=== PATIENT | female | born 1965 | race Caucasian/White ===

== ENCOUNTER 2025-06-17 02:49 | Inpatient (IN) | payer MEDICAID, OTHER ==
[~2025-06-17] VITALS: Ht 176.5 cm; Wt 85.5 kg
--- NOTE | 2025-06-17 03:38 | ED.PDOC ---
History of Present Illness HPI Comments 60 y/o obese F is BIBA as a transfer from [facility] for GI bleed. Patient endorses on being found with a GI bleed after being seen for an isolated, 25x minute diarrhea episode with black tarry stools, yesterday, following recent colonoscopy and EGD 2x days ago. Patient also complains of rig ht sided abdominal pain since aforementioned procedure alongside feeling lightheaded. Denial of any further acute symptoms. Chief Complaint: GI Bleed Time Seen by MD: 03:15 Reviewed Notes: Nurses Notes, Equipment Tester Notes, Medications, Allergies Allergies: Coded Allergies: Diphenhydramine (Verified Allergy, Unknown, 06/17/25) Information Source: Patient, Transfer Record, Emergency Med Personnel Mode of Arrival: EMS Severity: Moderate Timing: Days Duration: Since onset Prehospital treatment: 12 Lead EKG, Accucheck, Bill Cutter, Other (see transfer record ) Past Medical History Surgical History (Other): EGD, colonoscopy Family History Family History: Unknown Social History Smoker: Non-Smoker Alcohol: Denies ETOH Use Drugs: Denies Drug Use All Other Systems: Reviewed and Negative (As per HPI) Physical Exam General Appearance: Mild Distress, Obese HEENT: Normal ENT Inspection, Pharynx Normal, TMs Normal Neck: Full Range of Motion, Non-Tender, Normal, Normal Inspection Respiratory: Chest Non-Tender, Lungs Clear, No Accessory Muscle Use, No Respiratory Distress, Normal Breath Sounds Cardiovascular: No Edema, No JVD, No Murmur, No Gallop, Normal Peripheral Pulses, Regular Rate/Rhythm Breast Exam: Deferred Gastrointestinal: No Organomegaly, No Pulsatile Mass, Normal Bowel Sounds, RLQ (tenderness ), Soft, Tenderness (RLQ) Genitalia: Deferred Pelvic: Deferred Rectal: Deferred Extremities: No calf tenderness, Normal capillary refill, Normal inspection, Normal range of motion, Non-tender, No pedal edema Musculoskeletal : Apperance: Normal Neurologic: Alert, manager intranet II-XII nml as Tested, No Motor Deficits, Normal Affect, Normal Mood, No Sensory Deficits Cerebellar Function: Normal Reflexes: Normal Skin: Dry, Normal Color, Warm Lymphatic: No Adenopathy Was a procedure done? Was a procedure done?: No Differential Dx Considerations may include: GI bleed X-Ray, Labs, Meds, VS Vital Signs Date Time Temp Pulse Resp B/P (MAP) Pulse Ox O2 Delivery O2 Flow Rate FiO2 06/17/25 04:05 Room Air* 0 21 06/17/25 03:36 84 16 160/75 (103) 99 06/17/25 02:55 97.9 72 18 140/79 72 97.9 Lab Test 06/17/25 03:26 Range/Units White Blood Count 5.1 4.4-10.8 10^3/uL Red Blood Count 3.89 L 4.0-5.20 10^6/uL Hemoglobin 11.6 L 12.2-16.2 g/dL Hematocrit 34.0 L 36.0-46.0 % Mean Corpuscular Volume 87.4 80.0-100.0 fL Mean Corpuscular Hemoglobin 29.8 28.0-32.0 pg Mean Corpuscular Hemoglobin Concent 34.0 32.0-36.0 g/dL Red Cell Distribution Width 14.3 11.8-14.3 % Platelet Count 280 140-450 10^3/uL Mean Platelet Volume 8.0 6.9-10.8 fL Neutrophils (%) (Auto) 56.5 37.0-80.0 % Lymphocytes (%) (Auto) 33.0 10.0-50.0 % Monocytes (%) (Auto) 7.3 0.0-12.0 % Eosinophils (%) (Auto) 1.8 0.0-7.0 % Basophils (%) (Auto) 1.4 0.0-2.0 % Neutrophils # (Auto) 2.9 1.6-8.6 10 ^3/uL Lymphocytes # (Auto) 1.7 0.4-5.4 10 ^3/uL Monocytes # (Auto) 0.4 0-1.3 10 ^3/uL Eosinophils # (Auto) 0.1 0-0.8 10 ^3/uL Basophils # (Auto) 0.1 0-0.2 10 ^3/uL Nucleated Red Blood Cells 0.1 % Prothrombin Time 10.9 9.3-11.8 sec Prothrombin Time INR 1.03 0.9-1.15 Activated Partial Thromboplast Time 25.6 24.5-34.5 SEC Sodium Level 145 136-145 mmol/L Potassium Level 3.8 3.5-5.1 mmol/L Chloride Level 110 H 98-107 mmol/L Carbon Dioxide Level 25 20-31 mmol/L Anion Gap 10 5-15 Blood Urea Nitrogen 32 H 9-23 mg/dL Creatinine 1.22 H 0.550-1.02 mg/dL Glomerular Filtration Rate Calc 51 >90 mL/min BUN/Creatinine Ratio 26.2 H 10.0-20.0 Serum Glucose 103 74-106 mg/dL Calcium Level 9.2 8.7-10.4 mg/dL Total Bilirubin 0.4 0.2-1.0 mg/dL Aspartate Amino Transferase (AST) 24 13-40 U/L Alanine Aminotransferase (ALT) 24 7-40 U/L Alkaline Phosphatase 72 46-116 U/L Total Protein 6.9 5.7-8.2 g/dL Albumin 4.5 3.2-4.8 g/dL Current Medications Medications (Trade) Dose Ordered Sig/Ross Route Start Time Stop Time Status Last Admin Pantoprazole Sodium 50 ml @ 10 mls/hr Q5H ONCE IV 06/17/25 03:30 06/17/25 08:29 06/17/25 03:57 Acetaminophen/ Hydrocodone Bitart ([place] 5/325MG Tab) 1 tab ONCE ONCE PO 06/17/25 04:15 06/17/25 04:16 DC 06/17/25 04:25 Ondansetron HCl (Zofran) 4 mg ONCE ONCE IV 06/17/25 04:30 06/17/25 04:31 DC 06/17/25 04:25 Time of 1ST Reevaluation: 03:45 Reevaluation 1ST: Unchanged Patient Education/Counseling: Diagnosis, Treatment, Other (need for admission ) Family Education/Counseling: No Family Present SEPSIS Sepsis Screen Date sepsis recognized/suspect: Jun 17, 2025 Time Sepsis recognized/suspect: 300 Recent Procedure: No On Antibiotic Therapy: No Respiratory Rate >20: No Heart Rate >90: No Temp<36 C (96.8 F) or >38.3 C: No SBP <90 or MAP <65 mmHG: No New Acute Mental Status Change: No Is the patient on CPAP, BIPAP,: No Physician Orders Chest Portable (06/17/25 03:17) Electrocardigram (06/17/25 03:17) Pantoprazole 40mg/50ml Ns Ae (Protonix) (06/17/25 03:30) Vital Signs Date Time Temp Pulse Resp B/P (MAP) Pulse Ox O2 Delivery O2 Flow Rate FiO2 06/17/25 04:05 Room Air* 0 21 06/17/25 03:36 84 16 160/75 (103) 99 06/17/25 02:55 97.9 72 18 140/79 72 97.9 Laboratory Tests Test 06/17/25 03:26 White Blood Count 5.1 10^3/uL (4.4-10.8) Medications Medications Dose Ordered Sig/Ross Route Start Time Stop Time Status Last Admin Dose Admin Acetaminophen/ Hydrocodone Bitart 1 tab ONCE ONCE PO 06/17/25 04:15 06/17/25 04:16 DC 06/17/25 04:25 Ondansetron HCl 4 mg ONCE ONCE IV 06/17/25 04:30 06/17/25 04:31 DC 06/17/25 04:25 Pantoprazole Sodium 50 ml @ 10 mls/hr Q5H ONCE IV 06/17/25 03:30 06/17/25 08:29 06/17/25 03:57 Departure 1 Departure Time of Disposition: 05:18 Impression: Primary Impression: GI bleed Disposition: ADMITTED INPATIENT Admit to: Med Surg Condition: Guarded Discharged With: Self Comments 60-year-old female with GI bleeding. Patient recently had an endoscopy. The b leeding is melanotic. I suspect upper GI bleed. I ordered a Protonix drip. Patient will need admission for supportive care and further workup and GI consultation Critical Care Note Critical Care Time?: Yes (35 min-critical care time only) Critical care comment: Total critical care time: Approximately 36 minutes Due to a high probability of clinically significant, life threatening deterioration, the patient required my highest level of preparedness to intervene emergently and I personally spent this critical care time directly and personally managing the patient. This critical care time included obtaining a history; examining the patient; pulse oximetry; ordering and review of studies; arranging urgent treatment with development of a management plan; evaluation of patient's response to treatment; frequent reassessment; and, discussions with other providers. This critical care time was performed to assess and manage the high probability of imminent, life-threatening deterioration that could result in multi-organ failure. It was exclusive of separately billable procedures and treating other patients. Stability Stability form required: No Heart Score Heart Score: Heart Score Response (Comments) Value History N/A 0 EKG N/A 0 Age N/A 0 Risk Factors N/A 0 Troponin N/A 0 Total 0 I personally scribed for JOAN COATS MD ([email or web address]) on 06/17/25 at 03:37. Electronically submitted by Sylvester Gabriel ([email or web address]). I personally scribed for JOAN COATS MD ([email or web address]) on 06/17/25 at 04:00. Electronically submitted by Sylvester Gabriel [email or web address]). JOAN COATS MD Jun 17, 2025 03:37
[2025-06-17 03:39] LABS: Hematocrit 34.0 % (36.0-46.0); Hemoglobin 11.6 g/dL (12.2-16.2); Mean Corpuscular Hemoglobin 29.8 pg (28.0-32.0); Mean Corpuscular Volume 87.4 fL (80.0-100.0); Nucleated Red Blood Cells % 0.1 %
[2025-06-17 03:56] LABS: INR 1.03 (0.9-1.15); Partial Thromboplastin Time 25.6 SEC (24.5-34.5); Prothrombin Time 10.9 sec (9.3-11.8)
[2025-06-17 03:57] LABS: Alanine Aminotransferase 24 U/L (7-40); Alkaline Phosphatase 72 U/L (46-116); Anion Gap 10 (5-15); BUN/Creatinine Ratio 26.2 (10.0-20.0); Calcium 9.2 mg/dL (8.7-10.4); Carbon Dioxide 25 mmol/L (20-31); Glucose 103 mg/dL (74-106); Potassium 3.8 mmol/L (3.5-5.1); Sodium 145 mmol/L (136-145); Total Protein 6.9 g/dL (5.7-8.2)
[2025-06-17] MEDS: PANTOPRAZOLE 40mg/50ML NS AE 50 ML IV ONE (03:57)
[2025-06-17 03:58] LABS: Albumin 4.5 g/dL (3.2-4.8); Bilirubin, Total 0.4 mg/dL (0.2-1.0)
[2025-06-17 04:04] LABS: Blood Urea Nitrogen 32 mg/dL (9-23); Chloride 110 mmol/L (98-107)
[2025-06-17] MEDS: ONDANSETRON HCL 4 MG/2 ML VIAL IV ONE (04:25)
[2025-06-17] MEDS: HYDROcodone-ACET 5/325MG TAB PO ONE (04:25)
--- NOTE | 2025-06-17 04:41 | DVH ---
CHEST RADIOGRAPH Indication: SOB Technique: Single frontal view of the chest was obtained COMPARISON: CHEST 1V PORT on DOS: 06/16/25, CHEST 1V PORT on DOS: 02/08/25, CHEST TWO VIEWS on DOS: 01/18 10/13 FINDINGS: Lines and Tubes: None Lungs: Clear Pleura: No effusion. No pneumothorax. Cardiomediastinal contours: Unremarkable Bones: Unremarkable IMPRESSION: 1. No acute disease.
[2025-06-17] MEDS: PANTOPRAZOLE 40mg/50ML NS AE 50 ML IV SCH (05:45)
[2025-06-17] MEDS: SODIUM CHLORIDE 0.9% 1,000 ML IV ONE (05:45)
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
--- NOTE | 2025-06-17 06:29 | ECG ---
[facility] Test Date: 2025-06-17 Test Time: 04:26:19 Pat Name: JEAN PAUL JORGE Department: [facility] ED Patient ID: [facility]-[id number] Room: [address] [place] [address] Gender: F Leadership Program Internship: DEVIN : 1965 Requested By: JOAN COATS Order Number: [id number] Reading MD: Lon Sosa Measurements Intervals [place] Rate: 72 P: 69 VT: 188 QRS: 12 QRSD: 108 T: 53 QT: 505 QTc: 553 Interpretive Statements Sinus rhythm Low voltage, precordial leads Abnormal R-wave progression, early transition Prolonged QT interval Electronically Signed On 06-20-2025 22:04:45 PDT by Lon Sosa Please click the below link to view image of tracing.
[2025-06-17 06:42] LABS: HDL Cholesterol 45.0 mg/dL (40-59); Magnesium 2.1 mg/dL (1.6-2.6)
[2025-06-17 06:43] LABS: Cholesterol 187.0 mg/dL (< 200); Triglycerides 232.0 mg/dL (< 150)
[2025-06-17] MEDS: SODIUM CHLORIDE 0.9% 1,000 ML IV SCH (06:51)
[2025-06-17 07:00] LABS: Lipase 57.0 U/L (12-53)
[2025-06-17 07:48] LABS: Benzodiazephine Screen, Urine Neg (NEGATIVE)
[2025-06-17 07:49] LABS: Amphetamine Screen, Urine Neg (NEGATIVE); Barbiturate Scree,Urine Neg (NEGATIVE); Cannabinoid Screen, Urine Neg (NEGATIVE); Cocaine Screen, Urine Neg (NEGATIVE); Opiate Scree,Urine Neg (NEGATIVE); Phencyclidine Screen, Urine Neg (NEGATIVE); Urine Protein, UAD Negative (Negative)
--- NOTE | 2025-06-17 08:50 | DVH ---
Carotid Duplex Date: 06/17/2025 08:04 AM Clinical History: Multiple history of TIA Comparison: CTA CAROTID/ NECK on DOS: 04/06/25 Technique: Duplex Doppler evaluation of the extracranial carotid and vertebral arteries including col or Doppler and spectral/pulsed waveform analysis was performed. Findings: Velocities and ratios within normal limits IMPRESSION: No hemodynamically significant stenosis noted in the right carotid system. No hemodynamically significant stenosis noted in the left carotid system. Reference: Radiology 2003; 229:340-346
[2025-06-17 09:08] LABS: Hematocrit 32.6 % (36.0-46.0); Hemoglobin 11.1 g/dL (12.2-16.2); Mean Corpuscular Hemoglobin 29.4 pg (28.0-32.0); Mean Corpuscular Volume 86.1 fL (80.0-100.0); Nucleated Red Blood Cells % 0.3 %
[2025-06-17 09:19] LABS: Alanine Aminotransferase 22 U/L (7-40); Albumin 4.1 g/dL (3.2-4.8); Alkaline Phosphatase 65 U/L (46-116); Anion Gap 8 (5-15); BUN/Creatinine Ratio 20.8 (10.0-20.0); Carbon Dioxide 23 mmol/L (20-31); Glucose 100 mg/dL (74-106); Magnesium 1.9 mg/dL (1.6-2.6); Potassium 4.2 mmol/L (3.5-5.1); Sodium 143 mmol/L (136-145); Total Protein 6.5 g/dL (5.7-8.2)
[2025-06-17 09:20] VITALS: PULSE 74; RESP 12; O2SAT 100
[2025-06-17 09:20] LABS: Bilirubin, Total 0.3 mg/dL (0.2-1.0)
[2025-06-17 09:22] LABS: Blood Urea Nitrogen 26 mg/dL (9-23); Calcium 8.5 mg/dL (8.7-10.4); Chloride 112 mmol/L (98-107)
[2025-06-17] MEDS: IOHEXOL 350 MG/ML 100ML IJ ONE (10:09)
[2025-06-17] MEDS: SODIUM CHLORIDE 0.9% 2,000 ML IV ONE (10:12)
[2025-06-17 10:26] LABS: Ferritin 43.3 ng/mL (10-291)
[2025-06-17 11:23] LABS: Iron 62.0 ug/dL (50-170)
[2025-06-17 11:26] LABS: Total Iron Binding Capacity 315.0 ug/dL (250-425)
--- NOTE | 2025-06-17 12:14 | DVHSR ---
APPROVED REPORT EXAM: Two-dimensional and M-mode echocardiogram with Doppler and color Doppler. Blood Pressure: 124/68 mmHg INDICATION SOB RISK FACTORS Height: 64, Weight: 190 DIMENSIONS LVDd (3.8-5.7cm)LA (2D)3.4 (1.9-4.0cm)Aortic Root3.3 (2.0-3.7cm) LVDs (2.5-4.0cm)LA (MM) (1.9-4.0cm)Aortic Cusp Exc1.6 (1.5-2.0cm) EF (%) 76.0 (55-70%)Rt. Atrium3.7 (1.9-4.0cm)Asc. Aorta cm Mitral Valve MitralMitral Stenosis E wave0.82m/sMV Mean GR.mmHg A wave1.15m/sMV Peak GR.101mmHg E/A ratio0.72D MVAcm2 DECEL [id number] 1/2 [id number] IVRTmsDop MVA2.29cm2 Aortic Valve Aortic ValveAortic Stenosis V11.64m/Sujey Mean GR.10mmHg V22.20m/Sujey Peak GR.19mmHg LVOT Diameter1.8 (1.8-2.4cm)Doppler AVA1.90cm2 AI P 1/2 Zujx484.04ms Tricuspid Valve TR Velocity2.21m/s [id number] Conclusion lvef 65% mild mitral regurg normal rv function
[2025-06-17 13:00] VITALS: PULSE 74; RESP 20; O2SAT 99
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
--- NOTE | 2025-06-17 13:35 | DVH ---
Indication: RULE OUT INTRA-ABDOMINAL BLEEDING Technique: CT axial images of the abdomen and pelvis are obtained with intravenous contrast. Coronal and sagittal reformats were obtained. Radiation Dose Information: CTDI volume is 9.76 mGy. Dose-length product is 562 mGy*cm Comparison: CTA AAA on DOS: 04/06/25 FINDINGS: Lung bases demonstrate no pleural effusion. 3 mm left lower lobe solid nodule. Adrenal glands, spleen, pancreas unremarkable. Hydropic/Distended gallbladder. No enhancing hepatic lesion. Right renal cortical scarring. Kidneys demonstrate no hydronephrosis. Stomach is partially distended. Small bowel loops are normal in caliber. Moderate volume stool in the colon. No secondary signs for appendicitis. The abdominal aorta is normal in caliber without evidence for aneurysmal dilatation/ dissection. The celiac artery demonstrates no high-grade stenosis. SMA demonstrates no high-grade stenosis. Renal ar teries demonstrate no high-grade stenosis. SHAAN demonstrates no high-grade stenosis. Bladder is distended. No free pelvic fluid. No inguinal lymphadenopathy. Severe degenerate changes left hip. Moderate degenerate changes right hip. Moderate thoracolumbar de generative disc disease. IMPRESSION: No evidence for abdominal aortic aneurysmal dilatation/dissection. Hydropic/Distended gallbladder. Right renal parenchymal cortical scarring. 3 mm left lower lobe pulmonary nodule. Recommend follow-up per fleischner society criteria guideline s Other findings as described.
[2025-06-17 13:51] LABS: Hematocrit 31.4 % (36.0-46.0); Hemoglobin 10.4 g/dL (12.2-16.2); Mean Corpuscular Hemoglobin 30.0 pg (28.0-32.0); Mean Corpuscular Volume 90.4 fL (80.0-100.0); Nucleated Red Blood Cells % 0.1 %
[2025-06-17 13:56] LABS: Potassium 4.2 mmol/L (3.5-5.1)
[2025-06-17 13:57] LABS: Anion Gap 10 (5-15); Carbon Dioxide 22 mmol/L (20-31); Chloride 113 mmol/L (98-107); Sodium 145 mmol/L (136-145)
[2025-06-17 13:59] LABS: Calcium 8.2 mg/dL (8.7-10.4)
[2025-06-17] MEDS: MORPHINE SULFATE INJ 2 MG/ml SYRG IV PRN (14:01)
[2025-06-17 14:02] LABS: BUN/Creatinine Ratio 21.2 (10.0-20.0); Blood Urea Nitrogen 24 mg/dL (9-23); Glucose 103 mg/dL (74-106)
--- NOTE | 2025-06-17 16:30 | DVHINCON2 ---
GI Consult Consult Note Date of Consultation: 06/17/25 Chief Complaint: melena Referring Physician: Dr Almendarez H&P: 60 y.o. woman who had EGD with biopsy and colonoscopy done on who presents with a few episodes of melena. No bright blood in stool. She c/o some right side abdominal pain. No nausea and vomiting. Past Medical History: Dyslipidemia, asthma, fibromyalgia, questionable IBS, diverticulosis, gastritis, GERD, two episodes of TIA (03/2025), endometriosis status post initial uterine ablation and posterior hysterectomy, left hip osteoarthritis planning on completing surgery, depression, PTSD Past Surgical History:C7 fusion, uterine ablation, hysterectomy Social History: NO smoking, drinking ETOH and use of illegal drugs. Family History: no family h/o GI illness Review of Systems: Constitutional: no fever, chill, weight loss HEENT: no eye pain, no hearing loss, no oral lesion, no scleral icterus Heart: no chest pain, no chest pressure Lung: no cough, no dyspnea with exertion Abdomen: see HPI : no pain with urination, normal appearing urine Musculoskeletal: no joint pain, no muscle pain Neurological: no seizure, no loss of sensation, no weakness in extremities Pysch: no depression, no anxiety Derm: no rash, no jaundice Physical exam: General: NAD, AAOX3 HEENT: PERRL, no scleral icterus, normal hearing, gums without lesions or bleeding, oropharynx clear without erythema or exudate. Neck: Supple without enlargement of the thyroid, or lymphadenopathy. Chest: Normal size and shape, no tenderness, lung love clear to auscultation and percussion, nonlabored breathing. Heart: RRR, no murmur Abdomen: non-distended, no tenderness to palpation, +BS, no hepatosplenomegaly Extremities: no edema, no cyanosis Neurological: CN II-XII intact, sensation intact in all extremities, 5+ strength in all extremities, no asterixis Skin: No rashes, No jaundice Labs: Laboratory Results Test 06/17/25 13:36 06/17/25 12:12 06/17/25 08:49 06/17/25 06:51 White Blood Count 4.2 10^3/uL (4.4-10.8) Red Blood Count 3.48 10^6/uL (4.0-5.20) Hemoglobin 10.4 g/dL (12.2-16.2) Hematocrit 31.4 % (36.0-46.0) Mean Corpuscular Volume 90.4 fL (80.0-100.0) Mean Corpuscular Hemoglobin 30.0 pg (28.0-32.0) Mean Corpuscular Hemoglobin Concent 33.2 g/dL (32.0-36.0) Red Cell Distribution Width 14.3 % (11.8-14.3) Platelet Count 229 10^3/uL (140-450) Mean Platelet Volume 7.8 fL (6.9-10.8) Neutrophils (%) (Auto) 68.9 % (37.0-80.0) Lymphocytes (%) (Auto) 21.7 % (10.0-50.0) Monocytes (%) (Auto) 6.8 % (0.0-12.0) Eosinophils (%) (Auto) 1.2 % (0.0-7.0) Basophils (%) (Auto) 1.4 % (0.0-2.0) Neutrophils # (Auto) 2.9 10 ^3/uL (1.6-8.6) Lymphocytes # (Auto) 0.9 10 ^3/uL (0.4-5.4) Monocytes # (Auto) 0.3 10 ^3/uL (0-1.3) Eosinophils # (Auto) 0 10 ^3/uL (0-0.8) Basophils # (Auto) 0.1 10 ^3/uL (0-0.2) Nucleated Red Blood Cells 0.1 % Sodium Level 145 mmol/L (136-145) Potassium Level 4.2 mmol/L (3.5-5.1) Chloride Level 113 mmol/L (98-107) Carbon Dioxide Level 22 mmol/L (20-31) Anion Gap 10 (5-15) Blood Urea Nitrogen 24 mg/dL (9-23) Creatinine 1.13 mg/dL (0.550-1.02) Glomerular Filtration Rate Calc 56 mL/min (>90) BUN/Creatinine Ratio 21.2 (10.0-20.0) Serum Glucose 103 mg/dL (74-106) Calcium Level 8.2 mg/dL (8.7-10.4) Stool Occult Blood Positive (Negative) Stool Occult Blood Sample #2 Positive (Negative) Stool Occult Blood Sample #3 (Negative) Magnesium Level 1.9 mg/dL (1.6-2.6) Total Bilirubin 0.3 mg/dL (0.2-1.0) Aspartate Amino Transferase (AST) 27 U/L (13-40) Alanine Aminotransferase (ALT) 22 U/L (7-40) Alkaline Phosphatase 65 U/L (46-116) Total Protein 6.5 g/dL (5.7-8.2) Albumin 4.1 g/dL (3.2-4.8) Urine Color Light-yellow (Yellow) Urine Clarity Clear (Clear) Urine pH 5.5 (5.0-9.0) Urine Specific [place] 1.022 (1.001-1.035) Urine Protein Negative (Negative) Urine Ketones Negative (Negative) Urine Blood Negative /uL (Negative) Urine Nitrite Negative (Negative) Urine Bilirubin Negative (Negative) Urine Urobilinogen Normal mg/dL (Negative) Urine Leukocyte Esterase Negative /uL (Negative) Urine RBC <1 /hpf (0 - 4) Urine Microscopic WBC 1 /HPF (0-5) Urine Squamous Epithelial Cells Few /hpf (<5) Urine Bacteria None seen /hpf (None Seen) Urine Glucose Normal mg/dL (Normal) Urine Opiates Screen Neg (NEGATIVE) Urine Fentanyl Screen Neg (NEGATIVE) Urine Barbiturates Screen Neg (NEGATIVE) Urine Phencyclidine Screen Neg (NEGATIVE) Urine Amphetamines Screen Neg (NEGATIVE) Urine Benzodiazepines Screen Neg (NEGATIVE) Urine Cocaine Screen Neg (NEGATIVE) Urine Cannabinoids Screen Neg (NEGATIVE) Test 06/17/25 06:07 06/17/25 03:26 Reticulocyte Count (auto) 2.25 % (0.5-1.5) Lactic Acid Level 0.8 mmol/L (0.4-2.0) Iron Level 62 ug/dL (50-170) Total Iron Binding Capacity 315 ug/dL (250-425) Percent Iron Saturation 19.7 % (15-50) Ferritin 43.3 ng/mL (10-291) Vitamin B12 Level 486 pg/mL (211-911) Vitamin D 25-Hydroxy 68.3 ng/mL (30.0-100) Folic Acid 43.39 ng/mL (>5.38) Prothrombin Time 10.9 sec (9.3-11.8) Prothrombin Time INR 1.03 (0.9-1.15) Activated Partial Thromboplast Time 25.6 SEC (24.5-34.5) Hemoglobin A1c 5.6 % A1C (<5.7) Phosphorus Level 3.3 mg/dL (2.4-5.1) Triglycerides Level 232 mg/dL (< 150) Cholesterol Level 187 mg/dL (< 200) LDL Cholesterol 107 mg/dL (< 100) HDL Cholesterol 45 mg/dL (40-59) Lipase 57 U/L (12-53) Thyroid Stimulating Hormone (TSH) 4.99 uIU/mL (0.55-4.78) Other Laboratory Tests 06/17/25 13:36 Imaging: CT A/P: No evidence for abdominal aortic aneurysmal dilatation/dissection. Hydropic/Distended gallbladder. Right renal parenchymal cortical scarring. 3 mm left lower lobe pulmonary nodule. Recommend follow-up per fleischner society criteria guidelines Assessment: 60 y.o. woman s/p EGD with biopsy and colonoscopy who has melena. Plan: - Pt will be scheduled for an EGD tomorrow. Pt was informed of the risks (bleeding, infection, perforation, reaction to sedation medications and cardiopulmonary arrest) and benefit and is agreeable to undergo the procedures. - Continue with PPI bid - Pt can have clear liquid diet tonight and NPO at midnight. Date of Service: Jun 17, 2025 Billing Provider: CHRIS GRACE MD Common Visit Codes: [id number] INP/OBS CARE (MOD) CHRIS GRACE MD Jun 17, 2025 16:30
[2025-06-17 17:08] LABS: Hematocrit 32.7 % (36.0-46.0); Hemoglobin 10.9 g/dL (12.2-16.2)
[2025-06-17] MEDS: METOCLOPRAMIDE HCL 5MG/ml INJ 2ml VIAL IV ONE (17:49)
[2025-06-17] MEDS: HYDROmorphone HCL 2 MG/ML VL/or syr IV ONE (17:50)
[2025-06-17 19:55] VITALS: PULSE 77; RESP 18; O2SAT 99
[2025-06-17 21:36] VITALS: BP 152/76; PULSE 75; RESP 18; TEMP 98; O2SAT 96
[2025-06-17] MEDS ORDERED: CYCL-611 PO (22:29)
[2025-06-17] MEDS ORDERED: SERT-160 PO (22:29)
[2025-06-17] MEDS ORDERED: PREG150C63 PO (22:29)
[2025-06-17] MEDS ORDERED: PANT40TA57 PO (22:29)
[2025-06-17] MEDS ORDERED: QUET300T24 PO (22:29)
[2025-06-17] MEDS ORDERED: ASPI-325 PO (22:29)
[2025-06-17] MEDS ORDERED: LINA145C PO (22:29)
[2025-06-17] MEDS ORDERED: MONT-8 PO (22:29)
[2025-06-17] MEDS ORDERED: ZOLP10TA6 PO (22:29)
[2025-06-17] MEDS ORDERED: ATOR40TA52 PO (22:29)
[2025-06-17] MEDS ORDERED: FEXO-42 PO (22:29)
[2025-06-17 23:22] LABS: Hematocrit 32.2 % (36.0-46.0); Hemoglobin 11.2 g/dL (12.2-16.2)
[2025-06-17] MEDS: METOCLOPRAMIDE HCL 5MG/ml INJ 2ml VIAL IV PRN (23:56)
[2025-06-18] VITALS (9 sets, daily range): BP systolic 146–162; BP diastolic 73–99; PULSE 68–84; RESP 15–20; TEMP 96.5–97.9; O2SAT 98–100
[2025-06-18 06:01] LABS: Hematocrit 34.2 % (36.0-46.0); Hemoglobin 11.8 g/dL (12.2-16.2); Mean Corpuscular Hemoglobin 30.0 pg (28.0-32.0); Mean Corpuscular Volume 86.9 fL (80.0-100.0); Nucleated Red Blood Cells % 0.0 %
[2025-06-18 06:29] LABS: Alanine Aminotransferase 22 U/L (7-40); Albumin 4.6 g/dL (3.2-4.8); Alkaline Phosphatase 72 U/L (46-116); Anion Gap 13 (5-15); BUN/Creatinine Ratio 11.8 (10.0-20.0); Blood Urea Nitrogen 12 mg/dL (9-23); Calcium 9.2 mg/dL (8.7-10.4); Carbon Dioxide 23 mmol/L (20-31); Magnesium 1.8 mg/dL (1.6-2.6); Total Protein 7.2 g/dL (5.7-8.2)
[2025-06-18 06:30] LABS: Bilirubin, Total 0.4 mg/dL (0.2-1.0); Chloride 109 mmol/L (98-107); Glucose 134 mg/dL (74-106); Potassium 3.2 mmol/L (3.5-5.1); Sodium 145 mmol/L (136-145)
[2025-06-18] MEDS: POTASSIUM CHLORIDE 40 MEQ, LIDOCAINE 1% (LOCAL ANESTH.) 4 ML in SODIUM CHL 0.9% 250 ML IV ONE (08:15)
[2025-06-18] MEDS ORDERED: SODIUM CHLORIDE LOCK 0 ML ONE (09:32)
[2025-06-18] MEDS ORDERED: LIDOCAINE 1% INJ PF 5ML AMP ONE (09:32)
[2025-06-18] MEDS ORDERED: fentaNYL CITRATE 100 MCG/2 ML VL ONE (09:32)
[2025-06-18] MEDS ORDERED: ONDANSETRON HCL 4 MG/2 ML VIAL ONE ×2 (09:32→11:18)
[2025-06-18] MEDS ORDERED: MIDAZOLAM HCL 2MG/2ML 2ml VIAL (1mg/ml) ONE (09:32)
[2025-06-18] MEDS ORDERED: PROPOFOL 10 MG/ML 20 ML IV ONE ×2 (09:32→11:18)
[2025-06-18] MEDS ORDERED: METOCLOPRAMIDE HCL 5MG/ml INJ 2ml VIAL IV PRN ×2 (10:00→12:00)
[2025-06-18] MEDS ORDERED: HYDROmorphone HCL 2 MG/ML VL/or syr IV PRN ×2 (10:00)
[2025-06-18] MEDS ORDERED: MORPHINE SULFATE 4 MG/ML SYR/VIAL IV PRN (10:00)
[2025-06-18] MEDS ORDERED: MORPHINE SULFATE INJ 2 MG/ml SYRG IV PRN (10:00)
[2025-06-18] MEDS ORDERED: METOCLOPRAMIDE HCL 5MG/ml INJ 2ml VIAL ONE (11:18)
[2025-06-18] MEDS ORDERED: LIDOCAINE 2% (LOCAL ANESTH.) PF 5ml SDV ONE (11:18)
--- NOTE | 2025-06-18 11:28 | DVHOP2 ---
Operative Report DATE OF OPERATION: 06/18/25 PROCEDURE: Upper Endoscopy. PREOPERATIVE INDICATION: The patient is a 60 -year-old female undergoing endoscopy for melena. POSTOPERATIVE DIAGNOSES: 1. Two small gastric erosions that were not bleeding. 2. Slight gastritis. 3. No bleeding was observed. PROCEDURE PERFORMED BY: Zac Grady SCOPE: Olympus videoendoscope. ASA CLASS: 3 PREOPERATIVE MEDICATIONS: MAC with Witt GRADUATE ASSISTANT ATHLETIC TRAINER PROCEDURE IN DETAIL: After obtaining an informed consent, the patient was placed on left lateral decubitus position. The patient was then sedated with the above medications. A bite block was placed between her teeth. The endoscope was then passed through the oropharynx, into the esophagus, and through the stomach and pylorus up to the second and third part of the duodenum. The duodenum was normal in appearance. There were 2 small gastric erosions that were not bleeding. There was slight gastritis. GEJ was normal in appearance at 40 cm. The esophagus was normal in appearance. No bleeding was observed. The endoscope was then withdrawn. The patient tolerated the procedure well without difficulty. COMPLICATIONS : None SPECIMENS: None DISPOSITION: Transfer back to the floor PLAN: 1. Continue with Protonix 40 mg bid. 2. Pt can be d/c from GI prospective 3. She will f/u in GI clinic next Tuesday. ZAC GRADY MD Jun 18, 2025 11:28
[2025-06-18] MEDS ORDERED: ONDANSETRON HCL 4 MG/2 ML VIAL IV PRN (12:00)
[2025-06-18] MEDS ORDERED: PATIENTS OWN MEDICATION (Zolpidem Tartrate 1 TAB) PO PRN (12:00)
[2025-06-18] MEDS: ACETAMINOPHEN IV 1000 MG/100ML (10MG/ML) IV ONE (12:09)
[2025-06-18] MEDS ORDERED: HYDROMORPHONE HCL 1 MG/ML INJ IV PRN (12:15)
[2025-06-18] MEDS: ONDANSETRON ODT 4 MG TAB PO PRN (12:51)
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
[2025-06-18 14:28] LABS: Hematocrit 32.2 % (36.0-46.0); Hemoglobin 11.2 g/dL (12.2-16.2)
[2025-06-18] MEDS: SODIUM CHLORIDE 0.9% 250 ML IV ONE (14:31)
[2025-06-18] MEDS: MECLIZINE HCL 25 MG TAB PO ONE (16:05)
[2025-06-18 17:16] LABS: Hematocrit 33.8 % (36.0-46.0); Hemoglobin 11.6 g/dL (12.2-16.2)
[2025-06-18] MEDS: SODIUM CHLORIDE 0.9% 1,000 ML IV SCH (18:45)
[2025-06-18 19:11] LABS: Potassium 3.8 mmol/L (3.5-5.1)
[2025-06-18 19:12] LABS: Anion Gap 13 (5-15); Carbon Dioxide 23 mmol/L (20-31)
[2025-06-18 19:13] LABS: Calcium 9.1 mg/dL (8.7-10.4)
[2025-06-18 19:17] LABS: BUN/Creatinine Ratio 12.6 (10.0-20.0); Blood Urea Nitrogen 13 mg/dL (9-23)
[2025-06-18 19:18] LABS: Magnesium 1.8 mg/dL (1.6-2.6)
[2025-06-18 19:22] LABS: Chloride 110 mmol/L (98-107); Glucose 116 mg/dL (74-106); Sodium 146 mmol/L (136-145)
[2025-06-18] MEDS ORDERED: PATIENTS OWN MEDICATION (Quetiapine Fumerate (Quetiapine Fumarate) 1 TAB) PO SCH (22:00)
[2025-06-18] MEDS ORDERED: PATIENTS OWN MEDICATION (Pregabalin 1 CAP) PO SCH (22:00)
[2025-06-18] MEDS: PANTOPRAZOLE 40 MG/10 ML VIAL INJ IV SCH (22:16)
[2025-06-18] MEDS: ATORVASTATIN 20 MG TAB PO SCH (22:17)
[2025-06-18] MEDS: CYCLOBENZAPRINE HCL 10 MG TAB PO SCH (22:17)
[2025-06-18] MEDS: MECLIZINE HCL 25 MG TAB PO SCH (22:17)
[2025-06-18] MEDS: PREGABALIN CAPSULE 75 MG CAP PO SCH (22:18)
[2025-06-18] MEDS: ZOLPIDEM TARTRATE 5 MG TAB PO PRN (22:19)
[2025-06-18 22:59] LABS: Hematocrit 33.5 % (36.0-46.0); Hemoglobin 11.4 g/dL (12.2-16.2)
[2025-06-19 01:00] VITALS: BP 125/68; PULSE 84; RESP 18; TEMP 96.5; O2SAT 99
[2025-06-19 05:00] VITALS: BP 128/59; PULSE 87; RESP 18; TEMP 96.9; O2SAT 99
[2025-06-19 05:44] LABS: Hematocrit 32.7 % (36.0-46.0); Hemoglobin 11.3 g/dL (12.2-16.2); Mean Corpuscular Hemoglobin 29.9 pg (28.0-32.0); Mean Corpuscular Volume 86.2 fL (80.0-100.0); Nucleated Red Blood Cells % 0.0 %
[2025-06-19 05:55] LABS: Chloride 106 mmol/L (98-107); Sodium 144 mmol/L (136-145)
[2025-06-19 05:56] LABS: Anion Gap 13 (5-15); Calcium 9.3 mg/dL (8.7-10.4); Carbon Dioxide 25 mmol/L (20-31)
[2025-06-19 06:00] LABS: Potassium 3.1 mmol/L (3.5-5.1)
[2025-06-19 06:01] LABS: BUN/Creatinine Ratio 8.0 (10.0-20.0); Glucose 98 mg/dL (74-106)
[2025-06-19 06:08] LABS: Blood Urea Nitrogen 9 mg/dL (9-23)
[2025-06-19] MEDS: POTASSIUM CHL 20 Meq TABLET PO ONE (06:40)
[2025-06-19 08:00] VITALS: PULSE 74; PULSE 80; RESP 18; O2SAT 98
--- NOTE | 2025-06-19 08:45 | DVH ---
CLINICAL INFORMATION: Rule out acute cholecystitis. TECHNIQUE: 5.5 mCi of Choletec were administered intravenously. Images of the upper abdomen were ob tained at 2 minute intervals up to a total time of 60 minutes. COMPARISON: Correlation made to CT abdomen/ pelvis exam dated 06/16/2025. FINDINGS: There is prompt gallbladder visualization. There is no evidence of acute cholecystitis. N o excretion of activity into the small bowel demonstrated on the initial 60 minutes of imaging. Unab le to obtain delayed images due to the patient's condition. IMPRESSION: 1. No scintigraphic evidence of acute cholecystitis. 2. No excretion of activity into the small bowel on the initial 60 minutes of imaging, may suggest f unctional gallbladder disorder in the appropriate clinical setting. Correlate with clinical findings . Unable to obtain delayed imaging due to the patient's condition.
[2025-06-19 09:00] VITALS: BP 144/70; PULSE 73; RESP 18; TEMP 97.8; O2SAT 95
[2025-06-19] MEDS ORDERED: PATIENTS OWN MEDICATION (Atorvastatin Calcium 1 TAB) PO SCH (10:00)
[2025-06-19] MEDS ORDERED: PATIENTS OWN MEDICATION (Sertraline Hcl 1 TAB) PO SCH (10:00)
[2025-06-19] MEDS ORDERED: [UNRECOGNIZED DRUG - REMARK] PO SCH (10:00)
[2025-06-19] MEDS: LINACLOTIDE BASE 145 MCG PO SCH (10:00)
[2025-06-19] MEDS: SERTRALINE HCL 50 MG TAB PO SCH (10:23)
--- NOTE | 2025-06-19 10:40 | DVHDSRES ---
Discharge Summary Date of Admission Resident Creating Document: FUENTES YIP RESIDENT Jun 17, 2025 at 05:34 Date of Discharge: Jun 19, 2025 Admitting Diagnosis Acute GI bleeding Labs/Diagnostic Data: Laboratory Results Test 06/19/25 05:22 06/18/25 14:15 06/18/25 05:36 06/17/25 12:12 White Blood Count 5.1 10^3/uL (4.4-10.8) Red Blood Count 3.79 10^6/uL (4.0-5.20) Hemoglobin 11.3 g/dL (12.2-16.2) Hematocrit 32.7 % (36.0-46.0) Mean Corpuscular Volume 86.2 fL (80.0-100.0) Mean Corpuscular Hemoglobin 29.9 pg (28.0-32.0) Mean Corpuscular Hemoglobin Concent 34.7 g/dL (32.0-36.0) Red Cell Distribution Width 14.0 % (11.8-14.3) Platelet Count 306 10^3/uL (140-450) Mean Platelet Volume 7.6 fL (6.9-10.8) Neutrophils (%) (Auto) 70.7 % (37.0-80.0) Lymphocytes (%) (Auto) 20.1 % (10.0-50.0) Monocytes (%) (Auto) 7.3 % (0.0-12.0) Eosinophils (%) (Auto) 1.1 % (0.0-7.0) Basophils (%) (Auto) 0.8 % (0.0-2.0) Neutrophils # (Auto) 3.6 10 ^3/uL (1.6-8.6) Lymphocytes # (Auto) 1.0 10 ^3/uL (0.4-5.4) Monocytes # (Auto) 0.4 10 ^3/uL (0-1.3) Eosinophils # (Auto) 0.1 10 ^3/uL (0-0.8) Basophils # (Auto) 0 10 ^3/uL (0-0.2) Nucleated Red Blood Cells 0.0 % Sodium Level 144 mmol/L (136-145) Potassium Level 3.1 mmol/L (3.5-5.1) Chloride Level 106 mmol/L (98-107) Carbon Dioxide Level 25 mmol/L (20-31) Anion Gap 13 (5-15) Blood Urea Nitrogen 9 mg/dL (9-23) Creatinine 1.12 mg/dL (0.550-1.02) Glomerular Filtration Rate Calc 56 mL/min (>90) BUN/Creatinine Ratio 8.0 (10.0-20.0) Serum Glucose 98 mg/dL (74-106) Calcium Level 9.3 mg/dL (8.7-10.4) Magnesium Level 1.8 mg/dL (1.6-2.6) Total Bilirubin 0.4 mg/dL (0.2-1.0) Aspartate Amino Transferase (AST) 24 U/L (13-40) Alanine Aminotransferase (ALT) 22 U/L (7-40) Alkaline Phosphatase 72 U/L (46-116) Total Protein 7.2 g/dL (5.7-8.2) Albumin 4.6 g/dL (3.2-4.8) Stool Occult Blood Positive (Negative) Stool Occult Blood Sample #2 Positive (Negative) Stool Occult Blood Sample #3 (Negative) Test 06/17/25 06:51 06/17/25 06:07 06/17/25 03:26 Urine Color Light-yellow (Yellow) Urine Clarity Clear (Clear) Urine pH 5.5 (5.0-9.0) Urine Specific [place] 1.022 (1.001-1.035) Urine Protein Negative (Negative) Urine Ketones Negative (Negative) Urine Blood Negative /uL (Negative) Urine Nitrite Negative (Negative) Urine Bilirubin Negative (Negative) Urine Urobilinogen Normal mg/dL (Negative) Urine Leukocyte Esterase Negative /uL (Negative) Urine RBC <1 /hpf (0 - 4) Urine Microscopic WBC 1 /HPF (0-5) Urine Squamous Epithelial Cells Few /hpf (<5) Urine Bacteria None seen /hpf (None Seen) Urine Glucose Normal mg/dL (Normal) Urine Opiates Screen Neg (NEGATIVE) Urine Fentanyl Screen Neg (NEGATIVE) Urine Barbiturates Screen Neg (NEGATIVE) Urine Phencyclidine Screen Neg (NEGATIVE) Urine Amphetamines Screen Neg (NEGATIVE) Urine Benzodiazepines Screen Neg (NEGATIVE) Urine Cocaine Screen Neg (NEGATIVE) Urine Cannabinoids Screen Neg (NEGATIVE) Reticulocyte Count (auto) 2.25 % (0.5-1.5) Haptoglobin 148 mg/dL (33-346) Lactic Acid Level 0.8 mmol/L (0.4-2.0) Iron Level 62 ug/dL (50-170) Total Iron Binding Capacity 315 ug/dL (250-425) Percent Iron Saturation 19.7 % (15-50) Ferritin 43.3 ng/mL (10-291) Vitamin B12 Level 486 pg/mL (211-911) Vitamin D 25-Hydroxy 68.3 ng/mL (30.0-100) Folic Acid 43.39 ng/mL (>5.38) Prothrombin Time 10.9 sec (9.3-11.8) Prothrombin Time INR 1.03 (0.9-1.15) Activated Partial Thromboplast Time 25.6 SEC (24.5-34.5) Hemoglobin A1c 5.6 % A1C (<5.7) Phosphorus Level 3.3 mg/dL (2.4-5.1) Triglycerides Level 232 mg/dL (< 150) Cholesterol Level 187 mg/dL (< 200) LDL Cholesterol 107 mg/dL (< 100) HDL Cholesterol 45 mg/dL (40-59) Lipase 57 U/L (12-53) Thyroid Stimulating Hormone (TSH) 4.99 uIU/mL (0.55-4.78) Other Laboratory Tests 06/19/25 05:22 Brief Hx & Hospital Course: Radha Nice is a 60-year-old female patient who presents to ED with chief complaint of one episode of explosive black tarry diarrhea which started on Tuesday06/16/2025 at 11:30 a.m., associated with oppressive abdominal pain in the right lower quadrant, dizziness, inability to stand up and walk, and confusion. Patient was evaluated in local hospital in [facility] where they obtain orthostatic of signs which were positive, completed head CT in abdomen and pelvis CT which were within normal limits per patient, and decided to transfer her to higher level of care to [facility]. Patient reports completing EGD and colonoscopy on Tuesday06/14/2025 which only showed mild diverticulosis and mild gastritis. Patient does take aspirin due to two episodes of TIA. Denies nausea, vomiting, constipation, sick contacts, recent travel and any other associated symptom.CT angio of abdomen without runoff- No evidence for abdominal aortic aneurysmal dilatation/dissection.Hydropic/Distended gallbladder. Right renal parenchymal cortical scarring. 3 mm left lower lobe pulmonary nodule. Carotid Doppler negative for any significant stenosis of the carotid system. CXR no acute abnormality. Patient was treated with IV pantoprazole with the other conservative management. Patient was seen by Gastroenterology, endoscopy of upper GI revealed1-Two small gastric erosions that were not bleeding. Slight gastritis.No bleeding was observed. Patient hemoglobin was stable throughout the course of the hospital. Patient is being discharged home with the pantoprazole 40 mg p.o. b.i.d.. Patient was advised to follow up with the primary care physician in 1 week and also to follow up with the mold worker in 1-2 weeks further evaluation and care. Patient was hemodynamically stable on discharge. Condition at Discharge: Stable Final Diagnosis/Problems List # acute GI bleed (melena) #Gastritis #Diverticulosis with no diverticulitis # gastric erosion #Questionable IBS #Anemia #No presyncope probable orthostatic #Normocytic anemia #CLIFF hemodynamically mediated (VMN) #Ruled out CVA #History of TIAs # heart murmur #Left hip osteoarthritis #History endometriosis status post uterine ablation and posterior hysterectomy #3 mm left lower lobe pulmonary nodule. Discharge Disposition: Home Discharge Instruct/Medications Diet: Regular, See Comment Diet comment: Soft diet Activity: No Restrictions, As Tolerated Follow Up/Referral: Please follow up with the primary care physician in 1 week Please follow up with your mold worker in 1-2 weeks for further evaluation and care Please follow up with the copyman for pulmonary nodule Please continue regular soft diet for 5 days then advance as tolerated Avoid NSAIDs Medications: Pantoprazole 40 mg p.o. b.i.d. Avoid NSAIDs Resume other home medication Scheduled Aspirin (Aspirin Low Dose), 1 TAB PO DAILY, (Reported) Atorvastatin Calcium (Atorvastatin Calcium), 1 TAB PO DAILY, (Reported) Cyclobenzaprine HCl (Cyclobenzaprine Hydrochlo), 1 TAB PO HS, (Reported) Fexofenadine Hydrochloride (Beatriz Allergy), 180 MG PO DAILY, (Reported) Linaclotide Base (Linzess), 1 CAP PO DAILY, (Reported) Montelukast Sodium (Montelukast Sodium), 1 TAB PO DAILY, (Reported) Pantoprazole Sodium Sesquihydr (Pantoprazole Sodium Dr), 1 TAB PO BID, (Reported) Pregabalin (Pregabalin), 1 CAP PO BID, (Reported) Quetiapine Fumerate (Quetiapine Fumarate), 1 TAB PO HS, (Reported) Sertraline Hcl (Sertraline Hcl), 1 TAB PO DAILY, (Reported) Sucralfate (Carafate), 1 GM OR BID Scheduled PRN Zolpidem Tartrate (Zolpidem Tartrate), 1 TAB PO QHSP PRN for FOR INSOMNIA, (Reported) Discharge Statement: "Patient was advised to return to the ER or call 911 if any headaches, dizziness, shortness of breath, chest pain, abdominal pain, bleeding, fevers, or worsening of medical condition. Patient was counseled about treatment plan, medications, possible side effects, patientverbalized understanding. All questions were answered to the best of my ability. This discharge took greater then 30 minutes in planning, reviewing documentation, counseling the patient, and discussing with other team members." ASSESSMENT ASSESSMENT Assessment Date of Service: Jun 19, 2025 Billing Provider: ELISABET MENG MD Common Visit Codes: 10851-UTF/OBS DISCH DAY >30min FUENTES YIP RESIDENT Jun 19, 2025 10:40 ELISABET MENG MD Jun 19, 2025 22:12
[2025-06-19] MEDS ORDERED: SUCR1TAB31 OR (10:42)
[2025-06-19] MEDS ORDERED: fentaNYL CITRATE 100 MCG/2 ML VL IV ONE (12:44)
[2025-06-19 12:57] VITALS: BP 132/106; PULSE 91; RESP 18; TEMP 97.6; O2SAT 92
[2025-06-19] MEDS: HYDROcodone-ACET 5/325MG TAB PO ONE (13:53)
[2025-06-19 16:48] VITALS: BP 144/70; PULSE 73; RESP 18; TEMP 98.4; O2SAT 95
--- NOTE | 2025-06-21 09:38 | ECG ---
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
--- NOTE | 2025-06-22 10:41 | ECG ---
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
== END 2025-06-19 17:45 | disposition home or self-care (01) | DRG 241 ==
LOC: ER 02:49 → OVERFLOW 05:34 → TELE-EAST 21:30
PROVIDERS: ADMIT Student in an Organized Health Care Education/Training Program; ATTEND Student in an Organized Health Care Education/Training Program
PROC: 0DJ08ZZ Inspection of Upper Intestinal Tract, Via Natural or Artificial Opening Endoscopic (ICD-10-PCS; principal; 2025-06-18 11:16)
DX: K29.71 Gastritis, unspecified, with bleeding (principal); N17.0 Acute kidney failure with tubular necrosis; K25.4 Chronic or unspecified gastric ulcer with hemorrhage; D64.9 Anemia, unspecified; K58.9 Irritable bowel syndrome, unspecified; K57.30 Diverticulosis of large intestine without perforation or abscess without bleeding; E66.9 Obesity, unspecified; J45.909 Unspecified asthma, uncomplicated; E78.5 Hyperlipidemia, unspecified; M16.12 Unilateral primary osteoarthritis, left hip; R91.1 Solitary pulmonary nodule; Z90.710 Acquired absence of both cervix and uterus; Z86.73 Personal history of transient ischemic attack (TIA), and cerebral infarction without residual deficits; Z79.899 Other long term (current) drug therapy; Z68.27 Body mass index [BMI] 27.0-27.9, adult
CPT/HCPCS: 36415; 71045; 74175; 78226; 80048; 80053; 80061; 80307; 81001; 82270; 82306; 82607; 82728; 82746; 83010; 83036; 83540; 83550; 83605; 83690; 83735; 84100; 84443; 85014; 85018; 85025; 85045; 85610; 85730; 86850; 86900; 86901; 93005; 93306; 93886; 96365; 96375; 99291; G0378; J0131; J2003; J2250; J2405; J2470; J2704; J3490; Q0162